=== PATIENT | male | born 1985 | race African-American/Black ===

== ENCOUNTER 2023-02-09 13:06 | Outpatient (CLI) | payer BC, SELFPAY ==
--- NOTE | ~2023-02-09 | MR_ITS ---
EXAMINATION: MR knee LT wo con DATE: 02/09/2023 13:37 INDICATION: Internal derangement of the left knee TECHNIQUE: Magnetic resonance imaging (MRI) of the left knee was performed without intravenous contra st. Sequences included coronal PD-weighted FSE, coronal PD-weighted FS FSE, sagittal T2-weighted FSE , sagittal PD-weighted FS FSE and axial PD weighted fat saturated FSE. COMPARISON: None. FINDINGS: Medial compartment: Medial meniscus is normal. Unstable osteochondral lesion position at the lateral side of the anterior weightbearing medial femoral condyle. There is thin linear fluid signal 2 loose in situ o steochondral fragments which together measure 1.7 cm anteroposteriorly and 1.4 cm medial to lateral. There is mild partial-thickness cartilage loss with chondral surface irregularity along the anterior to central weightbearing medial femoral condyle and along the anterior aspect of the medial tibial pl [place]. Lateral compartment: Lateral meniscus is normal. Articular cartilage is normal. Patellofemoral compartment: Articular cartilage is normal. Ligaments and tendons: Anterior and posterior cruciate ligaments are normal. There is thickening and mild increased signal w ithout surrounding edema of the proximal medial collateral ligament consistent with scarring related to chronic sprain/partial tear. The fibular collateral ligament complex is normal. Mild patellar tend inopathy with small enthesopathic ossicle in the distal patellar tendon. Quadriceps tendon is normal. The visualized medial and lateral hamstring tendons as well as the iliotibial band are normal. Fluid: Small left knee joint effusion. There is a multilobulated ganglion cyst extending cephalad along the posterolateral margin of the posterior cruciate ligament. No loose osteochondral bodies identified. Osseous/other: Aside from the osteochondral lesion there is no fracture or pathologic marrow replacing process. IMPRESSION: 1. 1.7 x 1.4 cm unstable osteochondral lesion with a couple loose in situ fragments at the anterior w eightbearing medial femoral condyle. 2. 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 3. Mild distal patellar tendinopathy. 4. Mild scarring related to chronic sprain/partial tear of the proximal medial collateral ligament. Reviewed, dictated and finalized at location A. IMPRESSION: 1. 1.7 x 1.4 cm unstable osteochondral lesion with a couple loose in situ fragm ents at the anterior weightbearing medial femoral condyle. 2. 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 3. Mild distal patellar tendinopathy. 4. Mild scarring related to chronic sprain/partial tear of the proximal medial collateral ligament.
== END 2023-02-09 13:07 ==
LOC: MICIMG 13:10
PROVIDERS: PCP Physician Assistant; Visit Provider Physician Assistant
DX: M23.92 Unspecified internal derangement of left knee (principal); M25.562 Pain in left knee; G89.29 Other chronic pain; S83.282A Other tear of lateral meniscus, current injury, left knee, initial encounter; M89.9 Disorder of bone, unspecified; M17.12 Unilateral primary osteoarthritis, left knee; M76.52 Patellar tendinitis, left knee
CPT/HCPCS: 73721